=== PATIENT | female | born 1950 | race Caucasian/White ===

== ENCOUNTER 2023-06-08 08:33 | Outpatient (CLI) | payer MEDICARE | END 2023-06-08 08:34 | disposition home or self-care (01) | LOC: CSHCT 08:33 | DX: R22.1 Localized swelling, mass and lump, neck (principal); I70.90 Unspecified atherosclerosis | CPT/HCPCS: 70491; 82565 ==

== ENCOUNTER 2023-06-11 09:01 | Outpatient (CLI) | payer MEDICARE | END 2023-06-11 09:02 | disposition home or self-care (01) | LOC: CSHMAMMO 09:01 | PROVIDERS: ATTEND Obstetrics & Gynecology | DX: Z12.31 Encounter for screening mammogram for malignant neoplasm of breast (principal); Z91.89 Other specified personal risk factors, not elsewhere classified | CPT/HCPCS: 77063; 77067 ==

== ENCOUNTER 2023-10-02 15:47 | Outpatient (CLI) | payer MEDICARE | END 2023-10-02 15:48 | disposition home or self-care (01) | LOC: CSHRAD 15:47 | PROVIDERS: ATTEND Internal Medicine | DX: Z01.818 Encounter for other preprocedural examination (principal) | CPT/HCPCS: 71046 ==

== ENCOUNTER 2024-02-21 13:25 | Outpatient (CLI) | payer MEDICARE | END 2024-02-21 13:26 | disposition home or self-care (01) | LOC: CSHMAMMO 13:25 | PROVIDERS: ATTEND Internal Medicine | DX: Z13.820 Encounter for screening for osteoporosis (principal); Z78.0 Asymptomatic menopausal state; M85.851 Other specified disorders of bone density and structure, right thigh; M85.852 Other specified disorders of bone density and structure, left thigh | CPT/HCPCS: 77080 ==

== ENCOUNTER 2024-06-27 09:50 | Outpatient (CLI) | payer MEDICARE | END 2024-06-27 09:51 | disposition home or self-care (01) | LOC: CSHMAMMO 09:50 | PROVIDERS: ATTEND Internal Medicine | DX: Z12.31 Encounter for screening mammogram for malignant neoplasm of breast (principal); Z91.89 Other specified personal risk factors, not elsewhere classified | CPT/HCPCS: 77063; 77067 ==

== ENCOUNTER 2025-04-16 15:43 | Outpatient (CLI) | payer MEDICARE | END 2025-04-16 15:44 | disposition home or self-care (01) | LOC: CSHULT 15:43 | PROVIDERS: ATTEND Internal Medicine | DX: R55 Syncope and collapse (principal); R42 Dizziness and giddiness; I65.22 Occlusion and stenosis of left carotid artery | CPT/HCPCS: 93880 ==